=== PATIENT | female | born 1990 | race Caucasian/White ===

== ENCOUNTER → 2021-12-13 | Outpatient (CLI) | payer MEDICAID | LOC: DIA.ED 08:32 | DX: O24.419 Gestational diabetes mellitus in pregnancy, unspecified control (principal) | CPT/HCPCS: G0108 ==

== ENCOUNTER 2022-02-11 00:45 | Inpatient (IN) | payer MEDICAID ==
[2022-02-11] VITALS (64 sets, daily range): BP systolic 87–149; BP diastolic 44–94; PULSE 55–96; TEMP 97.8–98.1
[~2022-02-11] VITALS: Ht 152.4 cm; Wt 79.1 kg
--- NOTE | 2022-02-11 00:50 | NUR ---
Ambulatory to unit for assessment, accompanied by friend. Oriented to room, monitor, plan of care. Questions invited and answered. PT reports "my water broke @ 30"
[2022-02-11 03:00] LABS: BASO % 0.3 % (0.0-2.0); EOS # 0.1 K/mm3 (0.0-0.7); EOS % 1.3 % (0.0-4.0); GRAN % 73.1 % (42.2-75.2); HEMOGLOBIN 10.9 g/dl (12.5-16.0); LYMPH % 18.2 % (20.0-51.0); MEAN CELL VOLUME 81 fl (80.0-100.0); MEAN CORPUSCULAR HEMOGLOBIN 27 pg (27-31); MEAN CORPUSCULAR HGB CONC 33 g/dl (33.0-37.0); MEAN PLATELET VOLUME 10.9 fl (7.4-10.4); MONO # 0.7 K/mm3 (0.1-0.6); MONO % 6.3 % (1.7-9.3); PLATELET COUNT 250 K/mm3 (130-400); RED BLOOD COUNT 4.04 M/mm3 (4.10-5.30); REDCELL DISTRIBUTION WIDTH-CV 15.1 % (11.5-14.5)
[2022-02-11 03:18] LABS: HEMATOCRIT 32.6 % (37.0-47.0)
[2022-02-11] MEDS ORDERED: VALTREX 50500 MG/TAB PO (04:10)
[2022-02-11] MEDS ORDERED: ASPIRIN 81M81 MG/TA2 PO (04:12)
--- NOTE | 2022-02-11 08:20 | NUR ---
0820 - PATIENT ON BIRTHING BALL. EFM TRACING INDESCERNIBLE DUE TO MATERNAL POSITION. MONITOR ADJUSTED. CARE ONGOING.
--- NOTE | 2022-02-11 11:20 | NUR ---
1120 - MD MIGUEL A AT BEDSIDE. PLAN OF CARE DISCUSSED. QUESTIONS ANSWERED. 1125 - PATIENT SUPINE FOR SVE AND IUPC PLACEMENT PERFORMED BY MD MIGUEL A. SVE /-1. 1127 - DECEL NOTED. MD REMAINS AT BEDSIDE. PATIENT REPOSITIONED TO LL WITH PB AND BOLUS OF LR INITIATED. 1129 - FHR RETURNS TO BASELINE. CARE ONGOING.
--- NOTE | 2022-02-11 12:50 | NUR ---
1250 - SVE PERFORMED BY RN. 3-/-1 1255 - PATIENT POSITIONED IN LEFT LATERAL SIDE LYING HIP RELEASE. 1305 - PATIENT POSITIONED IN RIGHT LATERAL SIDE LYING HIP RELEASE. 1315 - PATIENT POSITIONED SITTING UP IN [facility]. CARE ONGOING.
--- NOTE | 2022-02-11 14:30 | NUR ---
1430 - MD MIGUEL A AT BEDSIDE. PLAN OF CARE DISCUSSED. 1435 - PATIENT POSITIONED SUPINE FOR EXAM. SVE PERFORMED BY . 3-/-. 1440 - VARIABLE DECELS NOTED. PATIENT REPOSITIONED TO LEFT LATERAL. LR BOLUS INITIATED. 1445 - FHR RETURNS TO BASELINE. 1450 - LATE AND VARIABLE DECELS NOTED. SVE PERFORMED BY YESSICA NIETO. -/-. PATIENT REPOSITIONED IN RIGHT LATERAL. CARE ONGOING. CARE ONGOING.
--- NOTE | 2022-02-11 15:35 | NUR ---
1535 - DECELS NOTED. 1539 - PATIENT REPOSITIONED LEFT LATERAL. 1544 - PATIENT REPOSITIONED RIGHT LATERAL. 1547 - PATIENT REPOSITIONED IN [place] SITTING UP. 1548 - PITOCIN TURNED OFF. 1550 - SVE PERFORMED BY YESSICA NIETO. -/-1. PATIENT REPOSITIONED TO RIGHT LATERAL WITH LEFT LEG IN [place]. CARE ONGOING.
--- NOTE | 2022-02-11 18:05 | NUR ---
180 - DECEL NOTED ON MONITOR. 180 - SVE PERFORMED BY YESSICA LOWERY. . PATIENT REPOSITIONED TO RIGHT LATERAL. 1811 - FHT IN LOW 100S. 1813 - PITOCIN OFF. LR BOLUS INITIATED. 1814 - PATIENT REPOSITIONED INTO [place] SITTING UP. 1817 - DECELS CONTINUE. SVE PERFORMED BY YESSICA SALINAS. . 1820 - PATIENT REPOSITIONED INTO KNEE CHEST. O2 ADMINISTERED VIA MASK AT 10LPM. MD MIGUEL A CALLED WITH UPDATE ON PATIENT CONDITION. 1832 - MD MIGUEL A AT BEDSIDE. PATIENT REPOSITIONED TO WEDGE LEFT FOR SVE. 183 - SVE PERFORMED BY MD MIGUEL A. /0. 184 - FSE PLACED BY MD MIGUEL A. 184 - PITOCIN RESTARTED AT 10UNITS/HR ORDERED BY MD MIGUEL A. CARE ONGOING.
--- NOTE | 2022-02-11 19:38 | NUR ---
193. DR GRADY HERE SVE PT COMPLETE. STEVEN CATH REMOVED, PT PREPPED FOR VAGINAL DELIVERY. PT IN SEMI FOWLERS POSITION USING THE FOOT PEDALS. FHR DECEL DOWN TO 70'S 5 MIN. PERINEUM PREPPED WITH HIBICLEANSE. 1943 VACUUM APPLIED, PT PUSHING, 1944 BABY DELIVERED, BABY PLACED ON MOMS ABD, DRIED AND STIMULATED. CORD CLAMPED AND CUT. BABY SKIN TO SKIN WITH MOM. 1949 PLACENTA DEILVERED. PITOCIN BOLUS STARTED. PT HAS 1 DEGREE PERINEAL LAC AND R LABIAL LAC WITH REPAIR. PT WAS CONTINUING TO BLEED SLIGHTLY. 2003. METHERGINE 0.2 MG IM GIVEN IN LEFT THIGH. 2019. CYTOTEC 600 MG 2ND BAG OF PITOCIN BOLUSING IN PER DR GRADY. DR GRADY DID A D&C. BLEEDING SLOWED DOWN AND IS NOW SCANT. PT TOLERATE THE WHOLE PROCEDURE WELL.
--- NOTE | 2022-02-11 22:20 | NUR ---
PT'S LEFT LEG IS STILL A LITTLE NUMB IN THE THIGH. SHE IS NOT ABLE TO AMB TO BR YET. PAD AND PANTIES PUT ON PT. PT TRANSFERED TO WHEELCHAIR BY SLIDING ACROSS TO IT. PT TRANSFERED TO ROOM 208 AND SLID OVER ONTO THE BED WITHOUT ANY PROBLEMS. PT ORIENTED TO ROOM AND CALL LIGHT, ROOM LIGHTS. INFORMED HER TO CALL FOR THE NURSE WHEN SHE NEEDS TO GO TO THE BR FOR THE FIRST TIME. PT VERBALIZED UNDERSTANDING. BABY TAKEN TO NURSERY BY ELIZABETH JAQUEZ RN FOR THE BATH. PT ATE A REGULAR DIET WITH HER FAMILY WHO HAVE GONE HOME NOW.
[2022-02-12 00:30] VITALS: BP 116/69; PULSE 80; TEMP 97.9
[2022-02-12 05:00] VITALS: BP 118/69; PULSE 76; TEMP 97.9
[2022-02-12 08:00] VITALS: BP 113/65; PULSE 81; TEMP 97.6
[2022-02-12] MEDS ORDERED: MOTRIN 600600 MG/TAB PO (08:12)
--- NOTE | 2022-02-12 09:11 | NUR ---
Initial visit; Patient thanked Cook Room Supervisor for offering congratulations and God's blessings for the of her daughter. Cook Room Supervisor thanked patient for choosing [facility].
[2022-02-12 11:19] VITALS: BP 106/50; PULSE 82; TEMP 98.2
[2022-02-12 15:38] VITALS: BP 95/57; PULSE 65; TEMP 97.9
[2022-02-12 20:45] VITALS: BP 118/69; PULSE 78; TEMP 97.9
[2022-02-13 08:04] VITALS: BP 110/82; PULSE 59; TEMP 97.5
[2022-02-13 14:30] VITALS: BP 111/64; PULSE 87; TEMP 98.2
== END 2022-02-13 15:00 | disposition home or self-care (01) | DRG 768 ==
LOC: LDRO 00:45 → LDR 01:25 → LDRO 01:25 → OB 01:25
PROVIDERS: ADMIT Obstetrics & Gynecology
PROC: 10D07Z6 Extraction of Products of Conception, Vacuum, Via Natural or Artificial Opening (ICD-10-PCS; principal; 2022-02-11)
PROC: 0UDB7ZZ Extraction of Endometrium, Via Natural or Artificial Opening (ICD-10-PCS; 2022-02-11)
PROC: 0HQ9XZZ Repair Perineum Skin, External Approach (ICD-10-PCS; 2022-02-11)
PROC: 3E033VJ Introduction of Other Hormone into Peripheral Vein, Percutaneous Approach (ICD-10-PCS; 2022-02-11)
DX: O48.0 Post-term pregnancy (principal); Z37.0 Single live birth; O98.32 Other infections with a predominantly sexual mode of transmission complicating childbirth; O72.1 Other immediate postpartum hemorrhage; O24.420 Gestational diabetes mellitus in childbirth, diet controlled; O70.0 First degree perineal laceration during delivery; A60.09 Herpesviral infection of other urogenital tract; O76 Abnormality in fetal heart rate and rhythm complicating labor and delivery; Z3A.40 40 weeks gestation of pregnancy
CPT/HCPCS: J2210; J2400; J2405; J2590; J7120